=== PATIENT | female | born 1985 | race Two or more races ===

== ENCOUNTER 2020-04-01 06:37 | Day surgery (SDC) | payer MEDICAID ==
[~2020-04-01 06:37] MED LIST: Doxycycline 100 MG Cap PO ONE
[2020-04-01] MEDS ORDERED: Lactated Ringers 1,000 ML IV SCH (06:45)
[2020-04-01] MEDS ORDERED: Propofol 200 MG/20 ML SDV ONE (07:09)
[2020-04-01] MEDS ORDERED: Midazolam 1 MG/ML 2 ML SDV ONE (07:09)
[2020-04-01] MEDS ORDERED: Glycopyrrolate 0.2 MG/ML SDV ONE (07:11)
[2020-04-01] MEDS ORDERED: Ondansetron 4 MG/2 ML SDV ONE (07:11)
[2020-04-01] MEDS ORDERED: Ketorolac 30 MG/ML SDV ONE (07:11)
[2020-04-01] MEDS ORDERED: Ondansetron 4 MG/2 ML SDV IVPUSH ONE (07:13)
--- NOTE | 2020-04-01 07:15 | PCM.PREANE ---
Preanesthetic Assessment - Anesthesia/Transfusion/Family Hx Anesthesia History: Prior Anesthesia Without Reaction Family History of Anesthesia Reaction: No Transfusion History: No Prior Transfusion(s) - Review of Systems General: No Symptoms Pulmonary: No Symptoms Cardiovascular: No Symptoms Gastrointestinal: Nausea Neurological: No Symptoms Other: Reports: None - Physical Assessment NPO Status Date: 03/31/20 Height: 5 ft Weight: 65.317 kg ASA Class: 2 Mental Status: Alert & Oriented x3 Airway Class: Mallampati = 1 Dentition: Reports: Normal Dentition (braces) ROM/Head Extension: Full Lungs: Clear to Auscultation, Normal Respiratory Effort Cardiovascular: Regular Rate, Regular Rhythm - Lab Values: Laboratory Last Values WBC 8.86 K/uL (4.0-11.0) 04/01/20 07:03 RBC 4.07 M/uL (4.30-5.90) L 04/01/20 07:03 Hgb 12.8 g/dL (12.0-16.0) 04/01/20 07:03 Hct 36.5 % (36.0-46.0) 04/01/20 07:03 MCV 89.7 fL (80.0-98.0) 04/01/20 07:03 MCH 31.4 pg (27.0-32.0) 04/01/20 07:03 MCHC 35.1 g/dL (31.0-37.0) 04/01/20 07:03 RDW Std Deviation 41.9 fl (28.0-62.0) 04/01/20 07:03 RDW Coeff of Chris 13 % (11.0-15.0) 04/01/20 07:03 Plt Count 290 K/uL (150-400) 04/01/20 07:03 MPV 8.40 fL (7.40-12.00) 04/01/20 07:03 Nucleated RBC % 0.0 /100WBC 04/01/20 07:03 Nucleated RBCs # 0 K/uL 04/01/20 07:03 - Allergies Allergies/Adverse Reactions: Allergies Allergy/AdvReac Type Severity Reaction Status Date / Time No Known Allergies Allergy Verified 03/28/20 09:37 - Blood Blood Available: No - Anesthesia Plan Pre-Op Medication Ordered: Other (zofran) - Acknowledgements Anesthesia Type Planned: Spinal Pt an Appropriate Candidate for the Planned Anesthesia: Yes Alternatives and Risks of Anesthesia Discussed w Pt/Guardian: Yes Pt/Guardian Understands and Agrees with Anesthesia Plan: Yes PreAnesthesia Questionnaire HEENT History: Reports: Other (See Below) Other HEENT History: has dental braces Gastrointestinal History: Reports: Other (See Below) Other Gastrointestinal History: heartburn during [employer] History: Reports: Endocrine/Metabolic History: Reports: Hypothyroidism - Past Surgical History Head Surgeries/Procedures: Reports: None Female Surgical History: Reports: D&C - SUBSTANCE USE Smoking Status *Q: Never Smoker Recreational Drug Use History: No - HOME MEDS Home Medications: Home Meds Levothyroxine 75 mcg PO QAM 03/28/20 [History] - CURRENT (IN HOUSE) MEDS Current Meds: Current Medications Lactated Ringer's (Ringers, Lactated) 1,000 mls @ 100 mls/hr IV ASDIRECTED CHANG Discontinued Medications Doxycycline Hyclate (Vibramycin) 200 mg PO ONETIME ONE Stop: 04/01/20 06:37 Glycopyrrolate (Robinul) Confirm Administered Dose 0.2 mg .ROUTE .STK-MED ONE Stop: 04/01/20 07:12 Ketorolac Tromethamine (Toradol) Confirm Administered Dose 30 mg .ROUTE .STK- MED ONE Stop: 04/01/20 07:12 Midazolam HCl (Versed 1 Mg/Ml) Confirm Administered Dose 4 mg .ROUTE .STK-MED ONE Stop: 04/01/20 07:10 Ondansetron HCl (Zofran) Confirm Administered Dose 4 mg .ROUTE .STK-MED ONE Stop: 04/01/20 07:12 Propofol (Diprivan 20 Ml) Confirm Administered Dose 400 mg .ROUTE .STK-MED ONE Stop: 04/01/20 07:10
[2020-04-01] MEDS ORDERED: Haloperidol Lactate 5 MG/ML SDV IM ONE (07:16)
--- NOTE | 2020-04-01 08:36 | PCM.OPNOTE ---
- General Post-Op/Procedure Note Date of Surgery/Procedure: 04/01/20 Operative Procedure(s): Suction dilation & curettage Findings: EUA: 9-10-week size anteverted uterus Post-op exam: 6-7-week size uterus Sound to 12cm Pre Op Diagnosis: 35yo @ 11w4d by LMP with missed Post-Op Diagnosis: 35yo at 11w4d by LMP with missed Anesthesia Technique: Epidural, Moderate Sedation Primary Surgeon: Yessenia Chan Anesthesia Provider: Rmoel Estrada Pathology: Products of conception Fluid Replacement, Intraop: 900 EBL in mLs: 200 Complications: None Condition: Good Free Text/Narrative:: 200mg po Doxycycline in pre-op for antibiotic prophylaxis
--- NOTE | 2020-04-01 08:54 | PCM.POSTAN ---
POST ANESTHESIA ASSESSMENT - MENTAL STATUS Mental Status: Alert, Oriented - VITAL SIGNS Vital Signs: Last Vital Signs Temp 97.7 F 04/01/20 08:32 Pulse 72 04/01/20 08:42 Resp 16 04/01/20 08:42 BP 93/55 L 04/01/20 08:42 Pulse Ox 99 04/01/20 08:42 - RESPIRATORY Respiratory Status: Respiratory Rate WNL, Airway Patent, O2 Saturation Stable - CARDIOVASCULAR CV Status: Pulse Rate WNL, Blood Pressure Stable - GASTROINTESTINAL GI Status: No Symptoms - PAIN Pain Score: 0 - POST OP HYDRATION Hydration Status: Adequate & Stable
[2020-04-01] MEDS ORDERED: Acetaminophen/oxyCODONE 325-5 MG Tab PO PRN (10:38)
--- NOTE | 2020-04-01 10:39 | OR ---
SURGEON: Yessenia Chan MD DATE OF PROCEDURE: 04/01/2020 PREOPERATIVE DIAGNOSES: A 35-year-old G6, P4-0-1-4 at 11 weeks and 4 days gestation by last menstrual period with missed . POSTOPERATIVE DIAGNOSIS: A 35-year-old G6, P4-0-1-4 at 11 weeks and 4 days gestation by last menstrual period with missed . PROCEDURE: Suction dilation and curettage. PRIMARY SURGEON: Yessenia Chan MD ANESTHESIA: Epidural and moderate sedation. FINDINGS: Exam under anesthesia, 9- to 10-week size anteverted uterus. POSTOPERATIVE EXAM: 6- to 7-week size uterus. PATHOLOGY: Products of conception. IV FLUIDS: 900 mL LR. ESTIMATED BLOOD LOSS: 200 mL. COMPLICATIONS: None. ANTIBIOTIC PROPHYLAXIS: 200 mg p.o. doxycycline and preop for antibiotic prophylaxis. INDICATIONS: This is a 35-year-old G6, P4-0-1-4, who presented at 11 weeks and 4 days gestation for planned surgical treatment of missed . On ultrasound 2 weeks prior, an empty gestational sac was noted without yolk sac or pole. The risks and benefits of expectant medical and surgical management were reviewed with the patient and she opted for surgical management. DESCRIPTION OF PROCEDURE: The patient was taken to the operating room where a spinal anesthesia was obtained. She was placed in the dorsal lithotomy position with legs in Yellofins stirrups. An exam under anesthesia revealed the above findings. She was prepared and draped in the normal sterile fashion. A speculum was inserted into the vagina. The anterior lip of the cervix was grasped with an Allis clamp. The cervix was sequentially dilated to size 8 with Hegar dilators. The uterus sounded to 12 cm. An 8 mm curved suction curette was introduced to the fundus, and with suction applied, rotated on the outward movement. This was repeated until no tissue was noted in the suction tubing. A medium-sized curette was introduced into the uterus and used to curette the uterus in a clockwise fashion until a gritty texture was noted in all quadrants. The suction tubing was again reintroduced to clear all remaining blood and tissue. The Allis clamp and speculum were removed. Exam showed uterus 6 to 7 weeks size with minimal bleeding. All instrument counts were correct. The patient was taken to the recovery room in stable condition. [id number] / MODL /[id number] MTDD
--- NOTE | 2020-04-01 11:19 | PCM48HPAN ---
Post Anesthesia Note - EVALUATION WITHIN 48HRS OF ANESTHETIC Vital Signs in Normal Range: Yes Patient Participated in Evaluation: Yes Respiratory Function Stable: Yes Airway Patent: Yes Cardiovascular Function Stable: Yes Hydration Status Stable: Yes Pain Control Satisfactory: Yes Nausea and Vomiting Control Satisfactory: Yes Mental Status Recovered: Yes Vital Signs: Last Vital Signs Temp 97.2 F 04/01/20 09:00 Pulse 72 04/01/20 10:00 Resp 16 04/01/20 10:00 BP 100/59 L 04/01/20 10:00 Pulse Ox 99 04/01/20 10:00
== END 2020-04-01 11:15 | disposition home or self-care (01) ==
LOC: MW.SDS 06:37
PROVIDERS: ATTEND Obstetrics & Gynecology
DX: O02.1 Missed abortion (principal); O73.1 Retained portions of placenta and membranes, without hemorrhage; E03.9 Hypothyroidism, unspecified; R11.0 Nausea; Z79.890 Hormone replacement therapy
CPT/HCPCS: 36415; 59820; 85027; 86156; 86850; 86900; 86901; 88305; A9270; J1885; J2250; J2405; J2704; J3490; J7120; 01965